=== PATIENT | male | born 1980 | race Caucasian/White ===

== ENCOUNTER 2016-12-16 09:56 | Emergency (ER) | payer MEDICAID ==
[2016-12-16 10:07] VITALS: RESP 16
[2016-12-16] MEDS ORDERED: ONDANSETRON 4 MG/2 ML VIAL IVP ONE ×2 (10:07→11:31)
[2016-12-16] MEDS ORDERED: NS 1,000 ML IV ONE ×2 (10:07→11:12)
[2016-12-16 10:28] LABS: % IMMATURE GRANULYOCYTES 0.3 % (0.0-1.1); ABSOLUTE IMMATURE GRANULOCYTES 0.03 10^3/uL (0.00-0.10); ADD DIFF? NO; ADD MORPH? NO; ADD SCAN? NO; ATYPICAL LYMPHOCYTE FLAG 0 (0-99); FRAGMENT RBC FLAG 0 (0-99); HEMATOCRIT 47.7 % (40.0-51.0); HEMOGLOBIN 16.9 g/dL (13.7-17.5); LEFT SHIFT FLG 0 (0-99); LIPEMIA HEMOLYSIS FLAG 90 (0-99); MEAN CELL HEMOGLOBIN 33.1 pg (27.9-34.1); MEAN CELL HEMOGLOBIN CONCENTR. 35.4 g/dL (32.4-36.7); MEAN CELL VOLUME 93.3 fL (81.5-99.8); MEAN PLATELET VOLUME 9.6 fL (8.7-11.7); PLATELET CLUMPS FLAG 0 (0-99); PLATELET COUNT 219 10^3/uL (150-400); RED BLOOD CELL COUNT 5.11 10^6/uL (4.40-6.38); RED CELL DISTRIBUTION WIDTH 12.2 % (11.5-15.2)
[2016-12-16 10:43] LABS: ALANINE AMINOTRANSFERASE 40 IU/L (21-72); ALBUMIN 4.3 g/dL (3.5-5.0); ALKALINE PHOSPHATASE 69 IU/L (38-126); ANION GAP 16 mEq/L (8-16); ASPARTATE AMINOTRANSFERASE 29 IU/L (17-59); BILIRUBIN,TOTAL 1.2 mg/dL (0.1-1.4); CALCIUM 9.4 mg/dL (8.5-10.4); CARBON DIOXIDE 22 mEq/l (22-31); CHLORIDE 106 mEq/L (97-110); CREATININE 0.9 mg/dL (0.7-1.3); GLOMERULAR FILTRATION RATE > 60; GLUCOSE 125 mg/dL (70-100); POTASSIUM 4.6 mEq/L (3.5-5.2); SODIUM 144 mEq/L (134-144); TOTAL PROTEIN 7.3 g/dL (6.3-8.2)
[2016-12-16] MEDS ORDERED: FAMOTIDINE 20 MG/2 ML SDV IVP ONE (11:12)
[2016-12-16] MEDS ORDERED: KETOROLAC 30 MG/1 ML SDV IVP ONE (11:13)
[2016-12-16 12:45] VITALS: TEMP 97.9
--- NOTE | 2016-12-16 12:49 | UCPHY ---
H & P Time Seen by Provider: 12/16/16 10:11 Patient Type: Established HPI/ROS: 36-year-old male presents complaining of vomiting and epigastric pain that began at 3:00 a.m. this morning. No diarrhea no constipation no fevers no chills States he is prone distress gastritis and this has happened many times in the past. He admits he had 2 large beers yesterday, however denies daily use of alcohol or medical problems related to alcohol States he smokes weed on Sundays. Review of systems As per HPI General no fever no chills no weakness HEENT no eye pain no eye discharge. No eye redness, no sore throat Respiratory no cough, no shortness of breath Cardiac no chest pain, no peripheral edema GI positive abdominal pain-epigastric positive nausea positive vomiting no diarrhea no constipation no flank pain, no hematuria, no dysuria Musculoskeletal no myalgias, no joint pain Heme no easy bruising, no easy bleeding Endo no polyuria, no polydipsia Skin no rashes, no pruritus Neuro no syncope, no dizziness, no headaches Psych is no suicidal ideation, no homicidal ideation Past Medical/Surgical History: Stress gastritis Social History: Alcohol on weekends, weed on weekends Smoking Status: Current every day smoker Physical Exam: 36-year-old male alert and oriented moderate distress secondary to nausea and vomiting, appears nontoxic and afebrile HEENT atraumatic normocephalic, extraocular muscles intact, anicteric Oropharynx negative for erythema negative exudate, tolerating her own secretions Neck supple no meningismus Lungs clear to auscultation bilaterally Heart regular rate and rhythm without murmur rub or gallop Abdomen nondistended normoactive bowel sounds soft epigastric tenderness to palpation negative guarding negative rebound no pulsatile mass Back no CVA tenderness, no step-offs, no spinal tenderness Extremities no cyanosis clubbing or edema Neuro alert and oriented, no focal deficits Constitutional: Initial Vital Signs Temperature (C) 36.5 C 12/16/16 10:05 Heart Rate 56 L 12/16/16 10:05 Respiratory Rate 16 12/16/16 10:05 Blood Pressure 139/88 H 12/16/16 10:05 O2 Sat (%) 98 12/16/16 10:05 O2 Delivery Mode Room Air Allergies/Adverse Reactions: No Known Allergies Allergy (Verified 12/16/16 10:05) Home Medications: Medication Instructions Recorded Ondansetron Odt [Zofran Odt 4 mg 4 mg PO Q4 PRN #10 tab 12/16/16 (*)] Medical Decision Making ED Course/Re-evaluation: Patient seen and evaluated for epigastric pain and vomiting IV established lab sent Patient given IV fluids, Zofran, morphine, famotidine, Toradol Labs all within normal limits CBC without elevated white blood cell count LFTs normal Lipase normal Differential diagnosis considered Pancreatitis, cholecystitis, biliary colic, gastroenteritis, gastritis, peptic ulcer disease Cannot rule out alcoholic gastritis, cannot rule out cyclic vomiting Impression Gastritis Plan Discharge home Zofran Follow-up primary care physician - Data Points Laboratory Results: Laboratory Results 12/16/16 10:24 12/16/16 10:24 Medications Given: Discontinued Medications Famotidine (Pepcid) 20 mg IVP EDNOW ONE Stop: 12/16/16 11:13 Last Admin: 12/16/16 11:28 Dose: 20 mg Sodium Chloride (Ns) 1,000 mls @ 0 mls/hr IV EDNOW ONE PRN Reason: As Directed Stop: 12/16/16 10:08 Last Admin: 12/16/16 10:22 Dose: 1,000 mls Sodium Chloride (Ns) 1,000 mls @ 0 mls/hr IV ONCE ONE PRN Reason: Wide Open Stop: 12/16/16 11:13 Last Admin: 12/16/16 11:25 Dose: 1,000 mls Ketorolac Tromethamine (Toradol) 30 mg IVP EDNOW ONE Stop: 12/16/16 11:14 Last Admin: 12/16/16 11:28 Dose: 30 mg Morphine Sulfate (Morphine) 4 mg IVP EDNOW ONE Stop: 12/16/16 10:37 Last Admin: 12/16/16 10:44 Dose: 4 mg Ondansetron HCl (Zofran) 4 mg IVP EDNOW ONE Stop: 12/16/16 10:08 Last Admin: 12/16/16 10:22 Dose: 4 mg Ondansetron HCl (Zofran) 4 mg IVP EDNOW ONE Stop: 12/16/16 11:32 Last Admin: 12/16/16 11:39 Dose: 4 mg Departure - Departure Disposition: Home, Routine, Self-Care Clinical Impression: Acute gastritis Condition: Good Instructions: Gastritis (ED) Referrals: NONE *PRIMARY CARE P,. [Primary Care Provider] - As per Instructions Prescriptions: Ondansetron Odt [Zofran Odt 4 mg (*)] 4 mg PO Q4 PRN #10 tab PRN Reason: Nausea/Vomiting, Use 1st - PQRS PQRS Measurement: na
[2016-12-16 13:01] VITALS: BP 130/7; PULSE 55; O2SAT 97
== END 2016-12-16 12:59 | disposition home or self-care (01) ==
LOC: CED 09:56
DX: K29.70 Gastritis, unspecified, without bleeding (principal)
CPT/HCPCS: 80053-PO; 83690-PO; 85025-PO; 96361-PO; 96374-PO; 96375-PO; 96376-PO; 99215-PO; G0463-PO; J1885; J2405

== ENCOUNTER 2017-03-07 14:34 | Emergency (ER) | payer MEDICAID ==
[2017-03-07 14:43] VITALS: TEMP 98.1
[2017-03-07] MEDS ORDERED: ONDANSETRON 4 MG/2 ML VIAL IVP ONE (14:46)
[2017-03-07] MEDS ORDERED: NS 1,000 ML IV ONE ×2 (14:59→15:20)
[2017-03-07 15:09] LABS: % IMMATURE GRANULYOCYTES 0.3 % (0.0-1.1); ABSOLUTE IMMATURE GRANULOCYTES 0.04 10^3/uL (0.00-0.10); ADD DIFF? NO; ADD MORPH? NO; ADD SCAN? NO; ATYPICAL LYMPHOCYTE FLAG 0 (0-99); FRAGMENT RBC FLAG 0 (0-99); HEMATOCRIT 50.5 % (40.0-51.0); HEMOGLOBIN 18.3 g/dL (13.7-17.5); LEFT SHIFT FLG 0 (0-99); LIPEMIA HEMOLYSIS FLAG 90 (0-99); MEAN CELL HEMOGLOBIN 33.5 pg (27.9-34.1); MEAN CELL HEMOGLOBIN CONCENTR. 36.2 g/dL (32.4-36.7); MEAN CELL VOLUME 92.3 fL (81.5-99.8); MEAN PLATELET VOLUME 9.7 fL (8.7-11.7); PLATELET CLUMPS FLAG 0 (0-99); PLATELET COUNT 259 10^3/uL (150-400); RED BLOOD CELL COUNT 5.47 10^6/uL (4.40-6.38); RED CELL DISTRIBUTION WIDTH 13.2 % (11.5-15.2)
[2017-03-07] MEDS ORDERED: HALOPERIDOL LACT 5 MG/ML INJ IVP ONE ×2 (15:12→16:47)
[2017-03-07 15:19] LABS: ALANINE AMINOTRANSFERASE 32 IU/L (21-72); ALBUMIN 4.7 g/dL (3.5-5.0); ALKALINE PHOSPHATASE 80 IU/L (38-126); ANION GAP 21 mEq/L (8-16); ASPARTATE AMINOTRANSFERASE 24 IU/L (17-59); BILIRUBIN,TOTAL 1.3 mg/dL (0.1-1.4); BILIRUBIN-CONJUGATED 0.5 mg/dL (0.0-0.5); BILIRUBIN-UNCONJUGATED 0.8 mg/dL (0.0-1.1); CALCIUM 9.8 mg/dL (8.5-10.4); CARBON DIOXIDE 18 mEq/l (22-31); CHLORIDE 104 mEq/L (97-110); GLOMERULAR FILTRATION RATE > 60; GLUCOSE 118 mg/dL (70-100); POTASSIUM 4.2 mEq/L (3.5-5.2); SODIUM 143 mEq/L (134-144)
--- NOTE | 2017-03-07 15:54 | EDPHY ---
H & P Stated Complaint: vomiting since 2 am, epigastric pain Time Seen by Provider: 03/07/17 14:58 HPI/ROS: CHIEF COMPLAINT: Vomiting and abdominal pain History by patient HISTORY OF PRESENT ILLNESS: 36-year-old man with no significant past medical history presents complaining of acute onset of nausea, vomiting and epigastric pain which began began last night around 2:00 a.m. waking him from sleep. He describes epigastric pain is like a hot knife for shards of glass in his upper abdomen. He had normal mood bowel movement around that time with no melena or hematochezia. Symptoms have persisted since and he has been unable to keep down even water. He states that last night before symptoms started he had eaten some old food from his refrigerator. He denies any fever chills. Feels slightly better when he gets in a hot shower and he has done this twice since the onset of the symptoms. He denies any urinary symptoms. This is somewhat similar to prior events he has had he has been told he has stress gastritis. He did drink 2 beers last night. He is also regular marijuana user. He has had no prior abdominal surgeries. REVIEW OF SYSTEMS: As in HPI, and all other systems reviewed and are negative Source: Patient - Personal History Tetanus Vaccine Date: within 10 years - Medical/Surgical History Hx Asthma: No Hx Chronic Respiratory Disease: No Hx Diabetes: No Hx Cardiac Disease: No Hx Renal Disease: No Hx Cirrhosis: No Hx Alcoholism: No Hx HIV/AIDS: No Hx Splenectomy or Spleen Trauma: No Other PMH: stress induced gastritis, - Family History Significant Family History: No pertinent family hx - Social History Smoking Status: Current every day smoker - Physical Exam Exam: General Appearance: Alert, slightly uncomfortable appearing. Eyes: Pupils equal and round no pallor or injection. ENT, Mouth: Mucous membranes moist. Respiratory: Normal, effort, There are no retractions, lungs are clear to auscultation. Cardiovascular: Regular rate and rhythm. Gastrointestinal: Abdomen is soft and nontender, no masses, bowel sounds normal. Neurological: Awake, alert and oriented x 3, no pronator drift, normal gait, no pronator drift Skin: Warm and dry, no rashes. Musculoskeletal: Neck is supple nontender. Extremities are symmetrical, full range of motion. Psychiatric: Patient has normal affect, there is no agitation. Constitutional: Initial Vital Signs Temperature (C) 36.7 C 03/07/17 14:41 Heart Rate 75 03/07/17 14:41 Respiratory Rate 20 03/07/17 14:41 Blood Pressure 151/93 H 03/07/17 14:41 O2 Sat (%) 97 03/07/17 14:41 O2 Delivery Mode Room Air Allergies/Adverse Reactions: No Known Allergies Allergy (Verified 12/16/16 10:05) Medical Decision Making ED Course/Re-evaluation: 36-year-old man with history of prior stress-induced gastritis presents with similar symptoms to prior episodes. Review of old records reveals multiple ER visits for the same types of complaints. Patient states that any kind of trigger that makes him vomit put into this state. Labs her up for slightly elevated white blood cell count but no evidence of anemia and his electrolytes, liver enzymes and lipase are all within normal limits. Patient was given IV fluids and Zofran with minimal relief. He was then given a dose of IV Haldol after which he was much improved. However he did wake up complaining of the burning epigastric pain again. He was given 2nd dose of IV Haldol and Pepcid after which his symptoms resolved. There is no evidence of acute surgical abdomen or close serious systemic toxicity. Given that the patient is a regular marijuana user and his symptoms improved in the hot shower and had been recurrent we discussed the possibility that this might be hyperemesis cannabis syndrome. I am recommending stopping marijuana use for 6-8 weeks. He will also do a trial of oral proton pump inhibitor. Patient was discharged home in improved condition. - Data Points Laboratory Results: Laboratory Results 03/07/17 14:45 03/07/17 14:45 03/07/17 03/07/17 14:45 14:45 WBC 12.78 10^3/uL H 10^3/uL (3.80-9.50) RBC 5.47 10^6/uL 10^6/uL (4.40-6.38) Hgb 18.3 g/dL H g/dL (13.7-17.5) Hct 50.5 % % (40.0-51.0) MCV 92.3 fL fL (81.5-99.8) MCH 33.5 pg pg (27.9-34.1) MCHC 36.2 g/dL g/dL (32.4-36.7) RDW 13.2 % % (11.5-15.2) Plt Count 259 10^3/uL 10^3/uL (150-400) MPV 9.7 fL fL (8.7-11.7) Neut % (Auto) 84.9 % H % (39.3-74.2) Lymph % (Auto) 9.1 % L % (15.0-45.0) [place] % (Auto) 5.4 % % (4.5-13.0) Eos % (Auto) 0.0 % L % (0.6-7.6) Baso % (Auto) 0.3 % % (0.3-1.7) Nucleat RBC Rel Count 0.0 % % (0.0-0.2) Absolute Neuts (auto) 10.85 10^3/uL H 10^3/uL (1.70-6.50) Absolute Lymphs (auto) 1.16 10^3/uL 10^3/uL (1.00-3.00) Absolute Monos (auto) 0.69 10^3/uL 10^3/uL (0.30-0.80) Absolute Eos (auto) 0.00 10^3/uL L 10^3/uL (0.03-0.40) Absolute Basos (auto) 0.04 10^3/uL 10^3/uL (0.02-0.10) Absolute Nucleated RBC 0.00 10^3/uL 10^3/uL (0-0.01) Immature Gran % 0.3 % % (0.0-1.1) Immature Gran # 0.04 10^3/uL 10^3/uL (0.00-0.10) Sodium 143 mEq/L mEq/L (134-144) Potassium 4.2 mEq/L mEq/L (3.5-5.2) Chloride 104 mEq/L mEq/L (97-110) Carbon Dioxide 18 mEq/l L mEq/l (22-31) Anion Gap 21 mEq/L H mEq/L (8-16) BUN 9 mg/dL mg/dL (7-23) Creatinine 1.0 mg/dL mg/dL (0.7-1.3) Estimated GFR > 60 Glucose 118 mg/dL H mg/dL (70-100) Calcium 9.8 mg/dL mg/dL (8.5-10.4) Total Bilirubin 1.3 mg/dL mg/dL (0.1-1.4) Conjugated Bilirubin 0.5 mg/dL mg/dL (0.0-0.5) Unconjugated Bilirubin 0.8 mg/dL mg/dL (0.0-1.1) AST 24 IU/L IU/L (17-59) ALT 32 IU/L IU/L (21-72) Alkaline Phosphatase 80 IU/L IU/L (38-126) Total Protein 8.0 g/dL g/dL (6.3-8.2) Albumin 4.7 g/dL g/dL (3.5-5.0) Lipase 74.0 IU/L IU/L (23-300) Medications Given: Discontinued Medications Haloperidol Lactate (Haldol Injection) 2.5 mg IVP EDNOW ONE Stop: 03/07/17 15:13 Last Admin: 03/07/17 15:25 Dose: 2.5 mg Haloperidol Lactate (Haldol Injection) 2.5 mg IVP EDNOW ONE Stop: 03/07/17 16:48 Last Admin: 03/07/17 16:55 Dose: 2.5 mg Sodium Chloride (Ns) 1,000 mls @ 0 mls/hr IV ONCE ONE; Wide Open PRN Reason: Protocol Stop: 03/07/17 15:00 Last Admin: 03/07/17 15:05 Dose: 1,000 mls Sodium Chloride (Ns) 1,000 mls @ 0 mls/hr IV ONCE ONE PRN Reason: Wide Open Stop: 03/07/17 15:21 Last Admin: 03/07/17 15:20 Dose: 1,000 mls Famotidine 40 mg/ Sodium (Chloride) 104 mls @ 408 mls/hr IV EDNOW ONE Stop: 03/07/17 17:02 Last Admin: 03/07/17 17:00 Dose: 104 mls Ondansetron HCl (Zofran) 4 mg IVP EDNOW ONE Stop: 03/07/17 14:47 Last Admin: 03/07/17 14:50 Dose: 4 mg Departure - Departure Disposition: Home, Routine, Self-Care Clinical Impression: Cannabinoid hyperemesis syndrome Condition: Good Instructions: Acute Nausea and Vomiting (ED) Additional Instructions: You were seen by Dr. Inez Alcantar today. Stop using marijuana for at least 6 or 8 weeks. Try omeprezole (Prilosec) for the next 5 days. Establish primary care so you have a care provider to follow up with since this has been a recurring problem for you. Return for any worsening or new concerns. Referrals: NONE *PRIMARY CARE P,. [Primary Care Provider] - As per Instructions
[2017-03-07] MEDS ORDERED: FAMOTIDINE 40 MG in NS 100 ML IV ONE (16:47)
[2017-03-07 17:43] VITALS: BP 143/87; PULSE 92; RESP 14; O2SAT 92
== END 2017-03-07 17:43 | disposition home or self-care (01) ==
LOC: CED 14:34
DX: F12.10 Cannabis abuse, uncomplicated (principal); R11.10 Vomiting, unspecified; F17.200 Nicotine dependence, unspecified, uncomplicated
CPT/HCPCS: 80048-PO; 80076-PO; 83690-PO; 85025-PO; 96374; J2405

== ENCOUNTER 2017-08-08 06:49 | Emergency (ER) | payer MEDICAID ==
--- NOTE | 2017-08-08 07:11 | EDPHY ---
H & P Time Seen by Provider: 08/08/17 07:01 HPI/ROS: CHIEF COMPLAINT: nausea, vomiting, epigastric pain HISTORY OF PRESENT ILLNESS: this is a 37-year-old male with at least 3 prior episodes of a similar story. He states that in the past he has been evaluated for hyperemesis syndrome in the setting of marijuana use This time is essentially similar as far as he can recall. He felt well for the entire day yesterday. Ate chicken wings from [employer] at 7:00 p.m. without any untoward problems. However by 7:30 p.m. he started having a burning sensation of a moderate to severe nature in the epigastrium and hypogastrium. There is no left flank component until later when he feels that he has been vomiting so frequently, approximately 10 times, that he strained his left back. By large she has a no history of back problems. Pain itself is localized, does not radiate, is intense, and steady. It is not pulsating. There is no radiation to the shoulder blades nor to the back. There is no lower abdominal pain whatsoever. He states he can walk upright. S the emesis there was some brief relief yesterday evening at around 6:39 eight thirty nine p.m. for about 4 hours when he had taken a Zofran. He had no other medications to use thereafter. Since 1:00 a.m. he has essentially been vomiting every hour. There has been no diarrhea. Travel: None Others: None Antibiotics: None Bad Food: None Bad Water: None Recent Surgery: None REVIEW OF SYSTEMS: Constitutional: No fever, no chills. Eyes: No discharge ENT: No sore throat. Though states, he has a dry mouth. Cardiovascular: No chest pain, no palpitations. Respiratory: No cough, shortness of breath, or wheezing. Gastrointestinal: No nausea vomiting or diarrhea. No abdominal pain. Genitourinary: No hematuria or frequency. Musculoskeletal: No back pain. Skin: No rashes. Neurological: No headache. 10 point ROS otherwise negative Source: Patient Exam Limitations: No limitations - Personal History Tetanus Vaccine Date: within 10 years - Medical/Surgical History Hx Asthma: No Hx Chronic Respiratory Disease: No Hx Diabetes: No Hx Cardiac Disease: No Hx Renal Disease: No Hx Cirrhosis: No Hx Alcoholism: No Hx HIV/AIDS: No Hx Splenectomy or Spleen Trauma: No Other PMH: stress induced gastritis, perhaps cyclic vomiting secondary to her prior marijuana use - Family History Significant Family History: No pertinent family hx - Social History Smoking Status: Current every day smoker Alcohol Use: None Drug Use: Marijuana (He notes, as of 6 months ago, he no longer uses marijuana due to the particular work that he does) - Physical Exam Exam: General Appearance: Alert, no distress. Afebrile. Normal phonation. No respiratory distress. Eyes: Pupils equal and round no pallor or injection. No icterus ENT, Mouth: Mucous membranes dry. Pharynx without erythema or exudate. TM Clear. Neck: No adenopathy. Supple. No JVD. Trachea in midline. Respiratory: There are no retractions, lungs are clear to auscultation. Chest wall: Nontender to palpation. No crepitus. Cardiovascular: Regular rate and rhythm. Abdomen: Upper abdominal tenderness in the midline without rebound or guarding. Makes him wince. Percussion sensitivity in that location. However in the lower abdominal area there is no tenderness per se. Does transmit a pressure sensation in the upper abdomen however when i do palpate the lower abd.. There is no distention. Bowel sounds are present. Neurological: Ox3. No motor weakness. Sensation intact. Gait nl. Skin: Warm and dry, no rashes. Musculoskeletal: No joint swelling. Extremities: No edema. Homans sign negative. No cords. Psychiatric: Normal affect. Patient is oriented X 3. There is no agitation Constitutional: Initial Vital Signs Temperature (C) 36.5 C 08/08/17 07:01 Heart Rate 77 08/08/17 07:01 Respiratory Rate 24 H 08/08/17 07:01 Blood Pressure 157/83 H 08/08/17 07:01 O2 Sat (%) 96 08/08/17 07:01 O2 Delivery Mode Room Air Allergies/Adverse Reactions: No Known Allergies Allergy (Verified 08/08/17 07:04) Home Medications: Medication Instructions Recorded LORazepam [Ativan] 1 mg PO TID PRN #6 tablet 08/08/17 Omeprazole [Prilosec 20 mg] 20 mg PO DAILY #7 capsule. 08/08/17 Ondansetron HCl [Zofran] 8 mg PO TID #6 tablet 08/08/17 Medical Decision Making ED Course/Re-evaluation: Started on aggressive hydration therapy in view of his clinical findings of volume depletion. 2 L total saline was infused. Initial medications included: Zofran 8 mg IV, Toradol 30 mg IV, Protonix 40 mg IV. However, this did not really manage his pain all that well. Thus he was titrated with low-dose morphine for discomfort. Re-evaluated at 8:05 a.m. Less tenderness in the hypogastrium. Has yet to be able to give us urine. CBC is normal LFTs normal Lipase normal No evidence of lower abdominal tenderness on clinical exam, when we checked at discharge, no clinical findings of appendicitis or diverticulitis. Patient nonetheless warned. Over time he was markedly improved to a pain level only 3 down from 7. He felt at least 75% better. Weight that time discussed his convalescence over the next 2-3 days with home therapy of both Ativan and Zofran for symptomatic management and progressive hydration with return if any worsening symptoms or lower abdominal pain. Differential Diagnosis: Differential diagnosis includes, but is not limited to: Gastroenteritis, dehydration, diverticulitis, hepatitis, pancreatitis, renal colic, kidney stones, ureterolithiasis, cholecystitis, appendicitis, gastritis, mesenteric adenitis, food poisoning, bacterial dysentery. - Data Points Laboratory Results: Laboratory Results 08/08/17 07:30 08/08/17 08/08/17 08/08/17 10:55 07:30 07:30 WBC 7.75 10^3/uL 10^3/uL (3.80-9.50) RBC 5.21 10^6/uL 10^6/uL (4.40-6.38) Hgb 18.1 g/dL H g/dL (13.7-17.5) Hct 48.4 % % (40.0-51.0) MCV 92.9 fL fL (81.5-99.8) MCH 34.7 pg H pg (27.9-34.1) MCHC 37.4 g/dL H g/dL (32.4-36.7) RDW 11.9 % % (11.5-15.2) Plt Count 185 10^3/uL 10^3/uL (150-400) MPV 9.7 fL fL (8.7-11.7) Neut % (Auto) 84.2 % H % (39.3-74.2) Lymph % (Auto) 11.6 % L % (15.0-45.0) [place] % (Auto) 3.6 % L % (4.5-13.0) Eos % (Auto) 0.0 % L % (0.6-7.6) Baso % (Auto) 0.3 % % (0.3-1.7) Nucleat RBC Rel Count 0.0 % % (0.0-0.2) Absolute Neuts (auto) 6.53 10^3/uL H 10^3/uL (1.70-6.50) Absolute Lymphs (auto) 0.90 10^3/uL L 10^3/uL (1.00-3.00) Absolute Monos (auto) 0.28 10^3/uL L 10^3/uL (0.30-0.80) Absolute Eos (auto) 0.00 10^3/uL L 10^3/uL (0.03-0.40) Absolute Basos (auto) 0.02 10^3/uL 10^3/uL (0.02-0.10) Absolute Nucleated RBC 0.00 10^3/uL 10^3/uL (0-0.01) Immature Gran % 0.3 % % (0.0-1.1) Immature Gran # 0.02 10^3/uL 10^3/uL (0.00-0.10) Total Bilirubin 2.0 mg/dL H mg/dL (0.1-1.4) Conjugated Bilirubin 0.5 mg/dL mg/dL (0.0-0.5) Unconjugated Bilirubin 1.5 mg/dL H mg/dL (0.0-1.1) AST 27 IU/L IU/L (17-59) ALT 52 IU/L IU/L (21-72) Alkaline Phosphatase 67 IU/L IU/L (38-126) Total Protein 7.5 g/dL g/dL (6.3-8.2) Albumin 4.5 g/dL g/dL (3.5-5.0) Lipase 56 IU/L IU/L (23-300) Urine Color YELLOW Urine Appearance CLEAR Urine pH 6.0 (5.0-7.5) Ur Specific [place] 1.025 (1.002-1.030) Urine Protein 1+ H (NEGATIVE) Urine Ketones 3+ H (NEGATIVE) Urine Blood NEGATIVE (NEGATIVE) Urine Nitrate NEGATIVE (NEGATIVE) Urine Bilirubin NEGATIVE (NEGATIVE) Urine Urobilinogen 0.2 EU EU (0.2-1.0) Ur Leukocyte Esterase NEGATIVE (NEGATIVE) Urine RBC 0-1 /hpf /hpf (0-3) Urine WBC 0-1 /hpf /hpf (0-3) Ur Epithelial Cells TRACE /lpf /lpf (NONE-1+) Urine Bacteria TRACE /hpf H /hpf (NONE SEEN) Urine Mucus TRACE /lpf /lpf (NONE-1+) Urine Glucose NEGATIVE (NEGATIVE) Medications Given: Discontinued Medications Fentanyl (Sublimaze) 50 mcg IVP EDNOW ONE Stop: 08/08/17 07:14 Last Admin: 08/08/17 07:33 Dose: 50 mcg Sodium Chloride (Ns) 1,000 mls @ 0 mls/hr IV EDNOW ONE; Wide Open PRN Reason: Protocol Stop: 08/08/17 07:14 Last Admin: 08/08/17 07:26 Dose: 1,000 mls Sodium Chloride (Ns) 1,000 mls @ 0 mls/hr IV EDNOW ONE; As Directed PRN Reason: Protocol Stop: 08/08/17 08:00 Last Admin: 08/08/17 08:48 Dose: 1,000 mls Ketorolac Tromethamine (Toradol) 30 mg IVP EDNOW ONE Stop: 08/08/17 07:14 Last Admin: 08/08/17 07:30 Dose: 30 mg Morphine Sulfate (Morphine) 4 mg IVP EDNOW ONE Stop: 08/08/17 08:53 Last Admin: 08/08/17 09:33 Dose: 4 mg Ondansetron HCl (Zofran) 8 mg IVP EDNOW ONE Stop: 08/08/17 07:14 Last Admin: 08/08/17 07:28 Dose: 8 mg Pantoprazole Sodium (Protonix) 40 mg IVP EDNOW ONE Stop: 08/08/17 07:15 Last Admin: 08/08/17 07:37 Dose: 40 mg Departure - Departure Disposition: Home, Routine, Self-Care Clinical Impression: Dehydration, Gastroenteritis, Cannabinoid hyperemesis syndrome Condition: Good Instructions: Dehydration (ED), Gastroenteritis (ED), Acute Nausea and Vomiting (ED) Additional Instructions: Yes, even though your have not had any marijuana for a year it still may be related to prior cannabis use. However these events should happen less than less as you stay away from cannabis. Zofran for the nausea Ativan for the nausea OTC Prilosec (or Rx) for one week Recheck tomorrow if still ill, sooner if you start getting worse Referrals: NONE *PRIMARY CARE P,. [Primary Care Provider] - As per Instructions Stand Alone Forms: Work Excuse Prescriptions: LORazepam [Ativan] 1 mg PO TID PRN #6 tablet PRN Reason: Nausea or abdominal pain Omeprazole [Prilosec 20 mg] 20 mg PO DAILY #7 capsule. Ondansetron HCl [Zofran] 8 mg PO TID #6 tablet
[2017-08-08] MEDS ORDERED: ONDANSETRON 4 MG/2 ML VIAL IVP ONE (07:13)
[2017-08-08] MEDS ORDERED: KETOROLAC 30 MG/1 ML SDV IVP ONE (07:13)
[2017-08-08] MEDS ORDERED: fentaNYL 100 MCG/2 ML INJ IVP ONE (07:13)
[2017-08-08] MEDS ORDERED: NS 1,000 ML IV ONE ×2 (07:13→07:59)
[2017-08-08] MEDS ORDERED: PANTOPRAZOLE SODIUM 40 MG VIAL IVP ONE (07:14)
[2017-08-08 07:38] LABS: ADD DIFF? NO; ADD MORPH? NO; ADD SCAN? NO; FRAGMENT RBC FLAG 0 (0-99); LEFT SHIFT FLG 0 (0-99); MEAN PLATELET VOLUME 9.7 fL (8.7-11.7); PLATELET CLUMPS FLAG 0 (0-99); RED CELL DISTRIBUTION WIDTH 11.9 % (11.5-15.2)
[2017-08-08 07:42] LABS: % IMMATURE GRANULYOCYTES 0.3 % (0.0-1.1); ABSOLUTE IMMATURE GRANULOCYTES 0.02 10^3/uL (0.00-0.10); ATYPICAL LYMPHOCYTE FLAG 20 (0-99); HEMATOCRIT 48.4 % (40.0-51.0); HEMOGLOBIN 18.1 g/dL (13.7-17.5); LIPEMIA HEMOLYSIS FLAG 90 (0-99); MEAN CELL HEMOGLOBIN 34.7 pg (27.9-34.1); MEAN CELL HEMOGLOBIN CONCENTR. 37.4 g/dL (32.4-36.7); MEAN CELL VOLUME 92.9 fL (81.5-99.8); PLATELET COUNT 185 10^3/uL (150-400); RED BLOOD CELL COUNT 5.21 10^6/uL (4.40-6.38)
[2017-08-08 07:52] LABS: ALBUMIN 4.5 g/dL (3.5-5.0); BILIRUBIN-CONJUGATED 0.5 mg/dL (0.0-0.5); BILIRUBIN-UNCONJUGATED 1.5 mg/dL (0.0-1.1); TOTAL PROTEIN 7.5 g/dL (6.3-8.2)
[2017-08-08 10:57] VITALS: RESP 16
[2017-08-08 11:04] LABS: COLOR YELLOW; LEUKOCYTE ESTERASE,URINE NEGATIVE (NEGATIVE); NITRITE,URINE NEGATIVE (NEGATIVE)
[2017-08-08 11:15] LABS: BACTERIA TRACE /hpf (NONE SEEN); MUCUS TRACE /lpf (NONE-1+); RBC,URINE 0-1 /hpf (0-3); WBC,URINE 0-1 /hpf (0-3)
[2017-08-08 12:18] VITALS: BP 119/68; PULSE 76; TEMP 98.4; O2SAT 94
== END 2017-08-08 12:05 | disposition home or self-care (01) ==
LOC: CED 06:49
DX: K52.9 Noninfective gastroenteritis and colitis, unspecified (principal); R11.10 Vomiting, unspecified; F12.10 Cannabis abuse, uncomplicated; E86.0 Dehydration; F17.200 Nicotine dependence, unspecified, uncomplicated; E86.9 Volume depletion, unspecified
CPT/HCPCS: 80076-PO; 81003-PO; 81015-PO; 83690-PO; 85025-PO; 96374; J1885; J2405; J3010

== ENCOUNTER 2017-09-18 08:26 | Emergency (ER) | payer MEDICAID ==
[2017-09-18] MEDS ORDERED: NS 1,000 ML IV ONE ×2 (08:31→09:19)
[2017-09-18] MEDS ORDERED: HALOPERIDOL LACT 5 MG/ML INJ IVP ONE ×2 (08:31→09:52)
[2017-09-18 08:37] VITALS: RESP 18; TEMP 98.1
[2017-09-18 08:42] LABS: PLATELET COUNT 250 10^3/uL (150-400)
--- NOTE | 2017-09-18 08:50 | EDPHY ---
H & P Time Seen by Provider: 09/18/17 08:28 HPI/ROS: CHIEF COMPLAINT: Abdominal pain, vomiting HISTORY OF PRESENT ILLNESS: 37-year-old male with a history of cyclic vomiting syndrome presents with abdominal pain and vomiting. Onset of intense and severe epigastric pain 8 hr ago, followed by multiple episodes of vomiting. Vomiting temporarily relieved the pain, but then the pain gradually built up again. Associated with a mild headache and diarrhea. No fever. Similar to prior episodes of abdominal pain and vomiting. Prior relief with Haldol IV. No marijuana use in the past 4 months. REVIEW OF SYSTEMS: Constitutional: No fever, no chills Eyes: No visual changes ENT: No sore throat Respiratory: No cough, no shortness of breath Cardiac: No chest pain Genitourinary: no dysuria Musculoskeletal: No leg pain or swelling Skin: No rash Neurological: Generalized weakness Psychiatric: Anxious Past Medical/Surgical History: Cyclic vomiting syndrome Social History: Drinks a couple beers every other day Smoke cigarettes daily Denies drug use Smoking Status: Current every day smoker Physical Exam: General Appearance: Alert, pale, appears in pain Eyes: Pupils equal and round, no conjunctival pallor or injection ENT, Mouth: Mucous membranes dry, court intention Neck: Normal inspection Respiratory: Lungs are clear to auscultation Cardiovascular: Regular rate and rhythm Gastrointestinal: Abdomen is soft, epigastric tenderness Neurological: A&O, nonfocal, normal gait Skin: Warm and dry, no rash Extremities: Normal inspection Psychiatric: Mood and affect normal Constitutional: Initial Vital Signs Temperature (C) 36.7 C 09/18/17 08:36 Heart Rate 65 09/18/17 08:36 Respiratory Rate 18 09/18/17 08:36 Blood Pressure 177/101 H 09/18/17 08:36 O2 Sat (%) 98 09/18/17 08:36 O2 Delivery Mode Room Air Allergies/Adverse Reactions: No Known Allergies Allergy (Verified 09/18/17 08:35) Home Medications: Medication Instructions Recorded Ondansetron Odt [Zofran Odt 4 mg 4 mg PO Q4 PRN #6 tab 09/18/17 (*)] Medical Decision Making ED Course/Re-evaluation: Past medical record reviewed. He has been seen in this emergency department a few times for similar symptoms and has had prior relief with Haldol IV. Clinical scenario consistent with cyclic vomiting syndrome. Doubt alternative etiology today. IV normal saline 1 L and Haldol 2.5 mg IV given. 9:45 a.m.-feels better, nausea has almost completely resolved. Continues to have epigastric pain. Abdominal exam is unchanged. Haldol 2.5 mg IV and Protonix 40 mg IV given. Feels much better on discharge and wants to go home. During this emergency department visit, he repeatedly asked for IV narcotics; this request was declined. However, after a total of Haldol 5 mg IV, Zofran 4 mg IV and Protonix 40 mg IV, he felt much better and did not want further medication. No vomiting while he was in the ED. Able to tolerate oral fluids. Abdominal exam remained benign on discharge. Return precautions given. Differential Diagnosis: Differential diagnosis includes though it is not limited to appendicitis, cholecystitis, diverticulitis, pyelonephritis, bowel perforation, small bowel obstruction. - Data Points Laboratory Results: Laboratory Results 09/18/17 08:38 09/18/17 08:38 09/18/17 09/18/17 08:38 08:38 WBC 11.63 10^3/uL H 10^3/uL (3.80-9.50) RBC 5.39 10^6/uL 10^6/uL (4.40-6.38) Hgb 18.8 g/dL H g/dL (13.7-17.5) Hct 50.4 % % (40.0-51.0) MCV 93.5 fL fL (81.5-99.8) MCH 34.9 pg H pg (27.9-34.1) MCHC 37.3 g/dL H g/dL (32.4-36.7) RDW 12.7 % % (11.5-15.2) Plt Count 250 10^3/uL 10^3/uL (150-400) MPV 9.5 fL fL (8.7-11.7) Neut % (Auto) 77.3 % H % (39.3-74.2) Lymph % (Auto) 13.5 % L % (15.0-45.0) [place] % (Auto) 7.1 % % (4.5-13.0) Eos % (Auto) 0.8 % % (0.6-7.6) Baso % (Auto) 0.9 % % (0.3-1.7) Nucleat RBC Rel Count 0.0 % % (0.0-0.2) Absolute Neuts (auto) 9.00 10^3/uL H 10^3/uL (1.70-6.50) Absolute Lymphs (auto) 1.57 10^3/uL 10^3/uL (1.00-3.00) Absolute Monos (auto) 0.82 10^3/uL H 10^3/uL (0.30-0.80) Absolute Eos (auto) 0.09 10^3/uL 10^3/uL (0.03-0.40) Absolute Basos (auto) 0.10 10^3/uL 10^3/uL (0.02-0.10) Absolute Nucleated RBC 0.00 10^3/uL 10^3/uL (0-0.01) Immature Gran % 0.4 % % (0.0-1.1) Immature Gran # 0.05 10^3/uL 10^3/uL (0.00-0.10) Sodium 143 mEq/L mEq/L (134-144) Potassium 3.9 mEq/L mEq/L (3.5-5.2) Chloride 107 mEq/L mEq/L (97-110) Carbon Dioxide 18 mEq/l L mEq/l (22-31) Anion Gap 18 mEq/L H mEq/L (8-16) BUN 8 mg/dL mg/dL (7-23) Creatinine 1.1 mg/dL mg/dL (0.7-1.3) Estimated GFR > 60 Glucose 141 mg/dL H mg/dL (70-100) Calcium 10.7 mg/dL H mg/dL (8.5-10.4) Phosphorus 1.5 mg/dL L mg/dL (2.5-4.5) Total Bilirubin 1.7 mg/dL H mg/dL (0.1-1.4) Conjugated Bilirubin 0.4 mg/dL mg/dL (0.0-0.5) Unconjugated Bilirubin 1.3 mg/dL H mg/dL (0.0-1.1) AST 32 IU/L IU/L (17-59) ALT 45 IU/L IU/L (21-72) Alkaline Phosphatase 78 IU/L IU/L (38-126) Total Protein 7.6 g/dL g/dL (6.3-8.2) Albumin 4.5 g/dL g/dL (3.5-5.0) Lipase 91 IU/L IU/L (23-300) Medications Given: Discontinued Medications Haloperidol Lactate (Haldol Injection) 2.5 mg IVP EDNOW ONE Stop: 09/18/17 08:32 Last Admin: 09/18/17 08:44 Dose: 2.5 mg Haloperidol Lactate (Haldol Injection) 2.5 mg IVP EDNOW ONE Stop: 09/18/17 09:53 Last Admin: 09/18/17 10:00 Dose: 2.5 mg Sodium Chloride (Ns) 1,000 mls @ 0 mls/hr IV EDNOW ONE; Wide Open PRN Reason: Protocol Stop: 09/18/17 08:32 Last Admin: 09/18/17 08:39 Dose: 1,000 mls Sodium Chloride (Ns) 1,000 mls @ 0 mls/hr IV ONCE ONE; Wide Open PRN Reason: Protocol Stop: 09/18/17 09:20 Last Admin: 09/18/17 09:34 Dose: 1,000 mls Ondansetron HCl (Zofran) 4 mg IVP EDNOW ONE Stop: 09/18/17 09:10 Last Admin: 09/18/17 09:15 Dose: 4 mg Pantoprazole Sodium (Protonix) 40 mg IVP EDNOW ONE Stop: 09/18/17 09:54 Last Admin: 09/18/17 09:58 Dose: 40 mg Departure - Departure Disposition: Home, Routine, Self-Care Clinical Impression: Cyclic vomiting syndrome Qualifiers: Vomiting Intractability: non-intractable Nausea presence: with nausea Qualified Code(s): G43.A0 - Cyclical vomiting, not intractable Condition: Good Instructions: Cyclic Vomiting Syndrome (ED) Additional Instructions: 1. Clear liquids for 24 hours. 2. Advance diet as tolerated. I suggest the BRAT diet to start: bananas, rice, applesauce and toast. 3. Return for worsening symptoms, persistent vomiting, abdominal pain, any concerns. Referrals: Sandy Lucero MD [Medical Doctor] - 1 day, if not improved Prescriptions: Ondansetron Odt [Zofran Odt 4 mg (*)] 4 mg PO Q4 PRN #6 tab PRN Reason: Nausea
[2017-09-18] MEDS ORDERED: ONDANSETRON 4 MG/2 ML VIAL IVP ONE (09:09)
[2017-09-18] MEDS ORDERED: PANTOPRAZOLE SODIUM 40 MG VIAL IVP ONE (09:53)
[2017-09-18 10:02] VITALS: BP 126/72; PULSE 70; O2SAT 96
== END 2017-09-18 10:29 | disposition home or self-care (01) ==
LOC: CED 08:26
DX: G43.A0 Cyclical vomiting, in migraine, not intractable (principal); E86.9 Volume depletion, unspecified; F17.200 Nicotine dependence, unspecified, uncomplicated
CPT/HCPCS: 80048-PO; 80076-PO; 83690-PO; 84100-PO; 85025-PO; 96374; J1630; J2405

== ENCOUNTER 2017-12-22 18:24 | Emergency (ER) | payer MEDICAID ==
[2017-12-22] MEDS ORDERED: NS 1,000 ML IV ONE ×2 (18:35→19:39)
[2017-12-22] MEDS ORDERED: ONDANSETRON 4 MG/2 ML VIAL IVP ONE (18:35)
--- NOTE | 2017-12-22 18:37 | EDPHY ---
H & P Time Seen by Provider: 12/22/17 18:28 HPI/ROS: 37 yo M with hx cyclic vomiting presents with similar symptoms today. He states that began last night at 6:00 p.m. He complains of epigastric abdominal pain and states when he vomits is also irritating a prior back injury for which she is currently in physical therapy. He also states his only medication is ondansetron p.r.n., that he is not currently taking any daily medications. He admits alcohol a few times per week usually a 6 pack and denies ever having any symptoms of withdrawal. He denies marijuana use states the last time he used marijuana was approximately at least 6 months ago. He states he has a primary care physician who is currently working with to sort out where this cyclic vomiting is coming from. Review of systems As per HPI General no fever no chills no weakness HEENT no eye pain no eye discharge. No eye redness, no sore throat Respiratory no cough, no shortness of breath Cardiac no chest pain, no peripheral edema GI positive abdominal pain, no diarrhea, no constipation, no nausea, positive vomiting no flank pain, no hematuria, no dysuria Musculoskeletal positive myalgias, no joint pain Heme no easy bruising, no easy bleeding Endo no polyuria, no polydipsia Skin no rashes, no pruritus Neuro no syncope, no dizziness, no headaches Psych is no suicidal ideation, no homicidal ideation Past Medical/Surgical History: cyclic vomiting Social History: Denies marijuana use Denies other recreational drug use States he drinks alcohol approximately a six-pack 2-3 times per week Smoking Status: Current every day smoker Physical Exam: 37-year-old male alert and oriented, moderate distress secondary to epigastric abdominal pain, afebrile Nontoxic appearance HEENT atraumatic normocephalic, extraocular muscles intact, anicteric Oropharynx negative for erythema negative exudate, tolerating her own secretions Neck supple no meningismus Lungs clear to auscultation bilaterally Heart regular rate and rhythm without murmur rub or gallop Abdomen nondistended bowel sounds quiet, positive epigastric tenderness no guarding no rebound Back no CVA tenderness, no step-offs, no spinal tenderness Extremities no cyanosis clubbing or edema Neuro alert and oriented, no focal deficits Constitutional: Initial Vital Signs Temperature (C) 37.2 C 12/22/17 18:33 Heart Rate 85 12/22/17 18:33 Respiratory Rate 18 12/22/17 18:33 Blood Pressure 166/102 H 12/22/17 18:33 O2 Sat (%) 96 12/22/17 18:33 O2 Delivery Mode Room Air Allergies/Adverse Reactions: No Known Allergies Allergy (Verified 09/18/17 08:35) Home Medications: Medication Instructions Recorded Ondansetron Odt [Zofran Odt 4 mg 4 mg PO Q4 PRN #6 tab 09/18/17 (*)] Medical Decision Making - Diagnostics Imaging Results: Imaging Impressions Abdomen X-Ray 12/22/17 18:57 Impression: 1. Non-obstructive bowel gas pattern. 2. Normal chest. Abdomen Ultrasound 12/22/17 19:38 Impression: Exam is mildly limited due to poor penetration. Trace free fluid along the inferior liver edge, nonspecific. Dr. Gonzalez discussed these findings by telephone with Kristi Valencia MD at 2200 hours on 12/22/2017. ED Course/Re-evaluation: Patient seen and evaluated for epigastric abdominal pain with vomiting. IV established Patient initially given ondansetron 4 mg IV push and normal saline 1 L wide open. Additionally he was given Haldol 2.5 mg IV, and famotidine 20 mg IV push. His nausea markedly improved however he continued to complain of epigastric pain. He was given Toradol 15 mg IV push and ultrasound ordered to evaluate right upper quadrant. Pt feeling markedly better after fluids and medication, requesting discharge. N-cln-[id number] series No evidence of dilated bowel No free air Right upper quadrant ultrasound small amount of free fluid near liver edge, otherwise normal Impression Acute gastritis with vomiting Dehydration Plan Home f/u pcp this week Return if needed Differential Diagnosis: Differential diagnosis considered but not limited to: Cholecystitis, gastritis, gastroenteritis, cyclic vomiting syndrome, pancreatitis, alcohol withdrawal, peptic ulcer disease - Data Points Laboratory Results: Laboratory Results 12/22/17 18:35 12/22/17 18:35 12/22/17 12/22/17 12/22/17 18:48 18:35 18:35 WBC 13.38 10^3/uL H 10^3/uL (3.80-9.50) RBC 5.51 10^6/uL 10^6/uL (4.40-6.38) Hgb 19.4 g/dL H g/dL (13.7-17.5) Hct 52.4 % H % (40.0-51.0) MCV 95.1 fL fL (81.5-99.8) MCH 35.2 pg H pg (27.9-34.1) MCHC 37.0 g/dL H g/dL (32.4-36.7) RDW 13.2 % % (11.5-15.2) Plt Count 257 10^3/uL 10^3/uL (150-400) MPV 9.3 fL fL (8.7-11.7) Neut % (Auto) 87.8 % H % (39.3-74.2) Lymph % (Auto) 6.3 % L % (15.0-45.0) [place] % (Auto) 5.3 % % (4.5-13.0) Eos % (Auto) 0.1 % L % (0.6-7.6) Baso % (Auto) 0.1 % L % (0.3-1.7) Nucleat RBC Rel Count 0.0 % % (0.0-0.2) Absolute Neuts (auto) 11.75 10^3/uL H 10^3/uL (1.70-6.50) Absolute Lymphs (auto) 0.84 10^3/uL L 10^3/uL (1.00-3.00) Absolute Monos (auto) 0.71 10^3/uL 10^3/uL (0.30-0.80) Absolute Eos (auto) 0.01 10^3/uL L 10^3/uL (0.03-0.40) Absolute Basos (auto) 0.02 10^3/uL 10^3/uL (0.02-0.10) Absolute Nucleated RBC 0.00 10^3/uL 10^3/uL (0-0.01) Immature Gran % 0.4 % % (0.0-1.1) Immature Gran # 0.05 10^3/uL 10^3/uL (0.00-0.10) VBG Lactic Acid 1.5 mmol/L mmol/L (0.7-2.1) Sodium 135 mEq/L mEq/L (135-145) Potassium 4.4 mEq/L mEq/L (3.5-5.2) Chloride 103 mEq/L mEq/L (97-110) Carbon Dioxide 18 mEq/l L mEq/l (22-31) Anion Gap 14 mEq/L mEq/L (8-16) BUN 12 mg/dL mg/dL (7-23) Creatinine 1.3 mg/dL mg/dL (0.7-1.3) Estimated GFR > 60 Glucose 152 mg/dL H mg/dL (70-100) Calcium 10.9 mg/dL H mg/dL (8.5-10.4) Phosphorus 2.1 mg/dL L mg/dL (2.5-4.5) Total Bilirubin 2.4 mg/dL H mg/dL (0.1-1.4) Conjugated Bilirubin 0.6 mg/dL H mg/dL (0.0-0.5) Unconjugated Bilirubin 1.8 mg/dL H mg/dL (0.0-1.1) AST 27 IU/L IU/L (17-59) ALT 49 IU/L IU/L (21-72) Alkaline Phosphatase 76 IU/L IU/L (38-126) Total Protein 8.6 g/dL H g/dL (6.3-8.2) Albumin 4.9 g/dL g/dL (3.5-5.0) Lipase 50 IU/L IU/L (23-300) Medications Given: Discontinued Medications Haloperidol Lactate (Haldol Injection) 2.5 mg IVP EDNOW ONE Stop: 12/22/17 18:45 Last Admin: 12/22/17 19:03 Dose: 2.5 mg Sodium Chloride (Ns) 1,000 mls @ 0 mls/hr IV ONCE ONE PRN Reason: Wide Open Stop: 12/22/17 18:36 Last Admin: 12/22/17 18:40 Dose: 1,000 mls Famotidine/Sodium Chloride (Pepcid 20 Mg (Premix)) 50 mls @ 200 mls/hr IV EDNOW ONE Stop: 12/22/17 18:59 Last Admin: 12/22/17 19:01 Dose: 50 mls Sodium Chloride (Ns) 1,000 mls @ 0 mls/hr IV ONCE ONE PRN Reason: Wide Open Stop: 12/22/17 19:40 Last Admin: 12/22/17 19:46 Dose: 1,000 mls Ketorolac Tromethamine (Toradol) 15 mg IVP EDNOW ONE Stop: 12/22/17 19:51 Last Admin: 12/22/17 19:52 Dose: 15 mg Ondansetron HCl (Zofran) 4 mg IVP EDNOW ONE Stop: 12/22/17 18:36 Last Admin: 12/22/17 18:40 Dose: 4 mg Departure - Departure Disposition: Home, Routine, Self-Care Clinical Impression: Cyclic vomiting syndrome, Epigastric abdominal pain Condition: Good Instructions: Abdominal Pain (ED), Cyclic Vomiting Syndrome (ED) Additional Instructions: Follow up with your primary care in the next 3-7 days Referrals: MELISSA PANDA [Other] - As per Instructions
[2017-12-22 18:42] LABS: PLATELET COUNT 257 10^3/uL (150-400)
[2017-12-22] MEDS ORDERED: HALOPERIDOL LACT 5 MG/ML INJ IVP ONE (18:44)
[2017-12-22] MEDS ORDERED: FAMOTIDINE 20 MG/NACL 50 ML IV ONE (18:45)
[2017-12-22] MEDS ORDERED: KETOROLAC 15 MG/1 ML SDV IVP ONE (19:50)
[2017-12-22 19:59] VITALS: RESP 16; O2SAT 94
[2017-12-22 21:39] VITALS: BP 137/85; PULSE 91; TEMP 98.4
== END 2017-12-22 21:44 | disposition home or self-care (01) ==
LOC: CED 18:24
DX: G43.A0 Cyclical vomiting, in migraine, not intractable (principal); R10.13 Epigastric pain; F17.200 Nicotine dependence, unspecified, uncomplicated
CPT/HCPCS: 74022-PO; 76705-PO; 80053-PO; 82248-PO; 83605-PO; 83690-PO; 84100-PO; 85025-PO; 96374; J1630; J1885; J2405

== ENCOUNTER 2018-03-14 11:46 | Emergency (ER) | payer MEDICAID ==
[2018-03-14] MEDS ORDERED: HALOPERIDOL LACT 5 MG/ML INJ IVP ONE (12:10)
[2018-03-14] MEDS ORDERED: NS 1,000 ML IV ONE ×2 (12:10→13:00)
--- NOTE | 2018-03-14 12:15 | EDPHY ---
H & P Stated Complaint: abd pain since am Time Seen by Provider: 03/14/18 12:02 HPI/ROS: Chief Complaint: Abdominal pain HPI: 37-year-old male started having low abdominal pain this morning. Patient states that he had 2 normal bowel movements this morning but feels like he has to pass stool again. Does have a history of cyclic vomiting but states that this feels different. No nausea or vomiting. No diarrhea or constipation. No dark black tarry stools or blood in his stools. Pain is about a 10/10. No urinary urgency or frequency. There are no aggravating or alleviating factors. ROS: 10 point Review of Systems is negative except as noted in the HPI. PMH: Cyclic vomiting syndrome Social History: Positive smoking, occasional alcohol, denies any other drug use including marijuana Family History: non-contributory Physical Exam: Gen: Awake, Alert, uncomfortable appearing HEENT: Nose: no rhinorrhea Eyes: PERRLA, EOMI Mouth: Moist mucosa Neck: Supple, no JVD Chest: nontender, lungs clear to auscultation Heart: S1, S2 normal, no murmur Abd: Soft, mild left lower quadrant tenderness, no guarding Back: no CVA tenderness, no midline tenderness Ext: no edema, non-tender Skin: no rash Neuro: CN II-XII intact, Sensation grossly intact, Strength 5/5 in bilateral upper and lower extremities - Personal History Current Tetanus Diphtheria and Acellular Pertussis (TDAP): Yes Tetanus Vaccine Date: within 10 years - Medical/Surgical History Hx Asthma: No Hx Chronic Respiratory Disease: No Hx Diabetes: No Hx Cardiac Disease: No Hx Renal Disease: No Hx Cirrhosis: No Hx Alcoholism: No Hx HIV/AIDS: No Hx Splenectomy or Spleen Trauma: No Other PMH: stress induced gastritis, cyclic vomiting - Social History Smoking Status: Heavy smoker Constitutional: Initial Vital Signs Temperature (C) 36.6 C 03/14/18 11:53 Heart Rate 73 03/14/18 11:53 Respiratory Rate 20 03/14/18 11:53 Blood Pressure 175/108 H 03/14/18 11:53 O2 Sat (%) 98 03/14/18 11:53 O2 Delivery Mode Room Air Allergies/Adverse Reactions: No Known Allergies Allergy (Verified 03/14/18 11:55) Home Medications: Medication Instructions Recorded Zantac 03/14/18 Medical Decision Making ED Course/Re-evaluation: Patient is improved after Haldol, Toradol and Hycotuss mean. Pain is a 4/10. His abdomen is soft and benign. His laboratory evaluations are unremarkable other than evidence of dehydration. He has received 2 L of fluids IV here. He is tolerating p.o. Fluids. Plan will be for discharge. He has appointment with his primary care physician already on . He will return for any concerns. On it see any evidence of an acute surgical abdomen at this time. Repeat examination is soft and benign. - Data Points Laboratory Results: 03/14/18 12:28 POC Sodium 140 mEq/L mEq/L (135-145) POC Potassium 3.3 mEq/L mEq/L (3.3-5.0) POC Chloride 105.0 mEq/L mEq/L (97-110) POC Total CO2 16 mEq/L L mEq/L (22-31) POC BUN 5 mg/dL L mg/dL (7-23) POC Creatinine 1.3 mg/dL mg/dL (0.7-1.3) POC Glucose 111 mg/dL H mg/dL (70-100) POC Calcium 9.5 mg/dL mg/dL (8.5-10.4) Medications Given: Discontinued Medications Haloperidol Lactate (Haldol Injection) 2.5 mg IVP EDNOW ONE Stop: 03/14/18 12:11 Last Admin: 03/14/18 12:17 Dose: 2.5 mg Hyoscyamine Sulfate (Levsin, Hyomax-Sl) 0.125 mg PO EDNOW ONE Stop: 03/14/18 13:36 Last Admin: 03/14/18 13:50 Dose: 0.125 mg Sodium Chloride (Ns) 1,000 mls @ 0 mls/hr IV ONCE ONE; Wide Open PRN Reason: Protocol Stop: 03/14/18 12:11 Last Admin: 03/14/18 12:05 Dose: 1,000 mls Ketorolac Tromethamine (Toradol) 15 mg IVP EDNOW ONE Stop: 03/14/18 12:45 Last Admin: 03/14/18 12:56 Dose: 15 mg Point of Care Test Results: CBC CBC Collection Date 03/14/18 CBC Collection Time 12:00 WBC 9.7 RBC 5.84 HGB 20.3 HCT 59.0 PLT 274 Neut # 6.0 Neut 61.5 LYMPH # 3.0 LYMPH 30.8 Other WBC # 0.7 Other WBC 7.7 MCV 101.0 Chemistry 03/14/18 12:28 POC Sodium 140 mEq/L mEq/L (135-145) POC Potassium 3.3 mEq/L mEq/L (3.3-5.0) POC Chloride 105.0 mEq/L mEq/L (97-110) POC Total CO2 16 mEq/L L mEq/L (22-31) POC BUN 5 mg/dL L mg/dL (7-23) POC Creatinine 1.3 mg/dL mg/dL (0.7-1.3) POC Glucose 111 mg/dL H mg/dL (70-100) POC Calcium 9.5 mg/dL mg/dL (8.5-10.4) Urine Dip Collection Date 03/14/18 Collection Time 13:20 Specific [place]ora (1.002-1.030) 1.025 PH (5.0-7.5) 6.5 Leukocytes (Negative) Negative Nitrites (Negative) Negative Protein (Negative) 1+ Glucose (Negative) Negative Ketones (Negative) 4+ Urobilnogen (0.2-1.0 EU) 0.2 Bilirubin (Negative) Test Not Performed Blood (Negative) Trace Departure - Departure Disposition: Home, Routine, Self-Care Clinical Impression: Abdominal pain Condition: Good Instructions: Acute Abdominal Pain (ED) Additional Instructions: Follow up with primary care physician in 4 days as already scheduled. Return to the emergency department for increasing abdominal pain, uncontrolled nausea vomiting, dark black tarry stools or any other concerns. Referrals: MELISSA PANDA [Other] - As per Instructions
[2018-03-14] MEDS ORDERED: KETOROLAC 15 MG/1 ML SDV IVP ONE (12:44)
[2018-03-14] MEDS ORDERED: HYOSCYAMINE SULFATE 0.125 MG TAB PO ONE (13:35)
[2018-03-14 14:26] VITALS: BP 165/100
== END 2018-03-14 14:05 | disposition home or self-care (01) ==
LOC: CED 11:46
DX: R10.32 Left lower quadrant pain (principal); F17.200 Nicotine dependence, unspecified, uncomplicated; E86.9 Volume depletion, unspecified
CPT/HCPCS: 80048-PO; 96374; J1630; J1885

== ENCOUNTER 2018-05-10 | Emergency (ER) | payer MEDICAID | END 2018-05-10 21:23 | disposition home or self-care (01) ==

== ENCOUNTER 2018-07-04 11:21 | Emergency (ER) | payer MEDICAID ==
[2018-07-04] MEDS ORDERED: NS 1,000 ML IV ONE ×4 (11:28→13:33)
[2018-07-04] MEDS ORDERED: FAMOTIDINE 20 MG/2 ML SDV IVP ONE (11:56)
[2018-07-04] MEDS ORDERED: LORazepam 2 MG/ML INJ IVP ONE (11:56)
[2018-07-04] MEDS ORDERED: HALOPERIDOL LACT 5 MG/ML INJ IVP ONE (11:57)
--- NOTE | 2018-07-04 11:58 | EDPHY ---
H & P Stated Complaint: vomiting since MN missed his pepcid dose . chronic n/v hx Time Seen by Provider: 07/04/18 11:27 HPI/ROS: 38-year-old male with history of cyclic vomiting presents with vomiting since last night. States he was started on Pepcid AC approximately 1 month ago had forgot to take it yesterday states he has actually been doing quite well until last night. Review of systems As per HPI General no fever no chills no weakness HEENT no eye pain no eye discharge. No eye redness, no sore throat Respiratory no cough, no shortness of breath Cardiac no chest pain, no peripheral edema GI positive abdominal pain, no diarrhea, no constipation, positive nausea, positive vomiting no flank pain, no hematuria, no dysuria Musculoskeletal no myalgias, no joint pain Heme no easy bruising, no easy bleeding Endo no polyuria, no polydipsia Skin no rashes, no pruritus Neuro no syncope, no dizziness, no headaches Psych is no suicidal ideation, no homicidal ideation Source: Patient Exam Limitations: No limitations - Personal History Current Tetanus Diphtheria and Acellular Pertussis (TDAP): Yes Tetanus Vaccine Date: within 10 years - Medical/Surgical History Hx Asthma: No Hx Chronic Respiratory Disease: No Hx Diabetes: No Hx Cardiac Disease: No Hx Renal Disease: No Hx Cirrhosis: No Hx Alcoholism: No Hx HIV/AIDS: No Hx Splenectomy or Spleen Trauma: No Other PMH: stress induced gastritis, cyclic vomiting X2 yrs - Family History Significant Family History: No pertinent family hx - Social History Smoking Status: Heavy smoker Alcohol Use: Occasionally Drug Use: Marijuana - Physical Exam Exam: 38-year-old male HEENT atraumatic normocephalic, extraocular muscles intact, anicteric Oropharynx negative for erythema negative exudate, tolerating her own secretions Neck supple no meningismus Lungs clear to auscultation bilaterally Heart regular rate and rhythm without murmur rub or gallop Abdomen nondistended normoactive bowel sounds soft mild epigastric tenderness, no guarding no rebound Back no CVA tenderness, no step-offs, no spinal tenderness Extremities no cyanosis clubbing or edema Neuro alert and oriented, no focal deficits Constitutional: Initial Vital Signs Temperature (C) 36.5 C 07/04/18 11:26 Heart Rate 95 07/04/18 11:26 Respiratory Rate 22 H 07/04/18 11:26 Blood Pressure 153/94 H 07/04/18 11:26 O2 Sat (%) 98 07/04/18 11:26 O2 Delivery Mode Room Air Allergies/Adverse Reactions: No Known Allergies Allergy (Verified 07/04/18 11:30) Home Medications: Medication Instructions Recorded Pepcid AC 07/04/18 Medical Decision Making ED Course/Re-evaluation: Patient seen and evaluated for epigastric abdominal pain and vomiting that began last night and continued throughout the night. IV established Patient given 3 L normal saline Labs done CBC with elevated WBC hemoglobin and hematocrit consistent with severe dehydration Lactate 4.6 Patient also given Haldol 2.5 mg IV push for intractable vomiting, Ativan 1 mg IV push for severe anxiety and famotidine 20 mg IV piggyback. After these medications and fluid hydration patient is feeling markedly improved and requesting discharge. Impression Acute gastritis, cyclic vomiting, severe dehydration Plan Discharge home Follow-up PCP Differential Diagnosis: Differential diagnosis considered but not limited to: Cyclic vomiting, gastritis, peptic ulcer disease, pancreatitis, cholecystitis, gastroenteritis - Data Points Laboratory Results: 07/04/18 07/04/18 07/04/18 14:10 12:13 12:04 POC Sodium POC Potassium POC Chloride POC Total CO2 POC BUN POC Creatinine POC Glucose POC Lactic Acid Beto 1.7 mmol/L D mmol/L 4.7 mmol/L H mmol/L 6.0 mmol/L H mmol/L (0.7-2.1) (0.7-2.1) (0.7-2.1) POC Calcium POC Total Bilirubin POC AST POC ALT POC Alk Phosphatase POC Total Protein POC Albumin 07/04/18 11:58 POC Sodium 144 mEq/L mEq/L (135-145) POC Potassium 4.2 mEq/L mEq/L (3.3-5.0) POC Chloride 102.0 mEq/L mEq/L (97-110) POC Total CO2 19 mEq/L L mEq/L (22-31) POC BUN 8 mg/dL mg/dL (7-23) POC Creatinine 1.2 mg/dL mg/dL (0.7-1.3) POC Glucose 161 mg/dL H mg/dL (70-100) POC Lactic Acid Beto POC Calcium 10.9 mg/dL H mg/dL (8.5-10.4) POC Total Bilirubin 1.9 mg/dL H mg/dL (0.1-1.4) POC AST 40 IU/L IU/L (17-59) POC ALT 39 IU/L IU/L (21-72) POC Alk Phosphatase 69 IU/L IU/L (38-126) POC Total Protein 8.8 g/dL H g/dL (6.3-8.2) POC Albumin 5.7 g/dL H g/dL (3.5-5.0) Medications Given: Discontinued Medications Famotidine (Pepcid) 20 mg IVP EDNOW ONE Stop: 07/04/18 11:57 Last Admin: 07/04/18 12:10 Dose: 20 mg Haloperidol Lactate (Haldol Injection) 2.5 mg IVP EDNOW ONE Stop: 07/04/18 11:58 Last Admin: 07/04/18 12:10 Dose: 2.5 mg Sodium Chloride (Ns) 1,000 mls @ 0 mls/hr IV ONCE ONE PRN Reason: Wide Open Stop: 07/04/18 11:29 Last Admin: 07/04/18 11:47 Dose: 1,000 mls Sodium Chloride (Ns) 1,000 mls @ 0 mls/hr IV ONCE ONE PRN Reason: Wide Open Stop: 07/04/18 11:57 Last Admin: 07/04/18 12:00 Dose: 1,000 mls Sodium Chloride (Ns) 1,000 mls @ 0 mls/hr IV ONCE ONE PRN Reason: Wide Open Stop: 07/04/18 13:34 Last Admin: 07/04/18 12:30 Dose: 1,000 mls Lorazepam (Ativan Injection) 1 mg IVP EDNOW ONE Stop: 07/04/18 11:57 Last Admin: 07/04/18 12:08 Dose: 1 mg Point of Care Test Results: CBC CBC Collection Date 07/04/18 CBC Collection Time 11:55 WBC 15.7 RBC 5.86 HGB 20.7 HCT 56.7 PLT 253 Neut # 13.7 Neut 87.4 LYMPH # 1.1 LYMPH 6.8 Other WBC # 0.9 Other WBC 5.8 MCV 96.8 Chemistry 07/04/18 11:58 POC Sodium 144 mEq/L mEq/L (135-145) POC Potassium 4.2 mEq/L mEq/L (3.3-5.0) POC Chloride 102.0 mEq/L mEq/L (97-110) POC Total CO2 19 mEq/L L mEq/L (22-31) POC BUN 8 mg/dL mg/dL (7-23) POC Creatinine 1.2 mg/dL mg/dL (0.7-1.3) POC Glucose 161 mg/dL H mg/dL (70-100) POC Calcium 10.9 mg/dL H mg/dL (8.5-10.4) POC Total Bilirubin 1.9 mg/dL H mg/dL (0.1-1.4) POC AST 40 IU/L IU/L (17-59) POC ALT 39 IU/L IU/L (21-72) POC Alk Phosphatase 69 IU/L IU/L (38-126) POC Total Protein 8.8 g/dL H g/dL (6.3-8.2) POC Albumin 5.7 g/dL H g/dL (3.5-5.0) Blood Gas/Lactic Acid-Venous 07/04/18 07/04/18 07/04/18 14:10 12:13 12:04 POC Lactic Acid Beto 1.7 mmol/L D mmol/L 4.7 mmol/L H mmol/L 6.0 mmol/L H mmol/L (0.7-2.1) (0.7-2.1) (0.7-2.1) Departure - Departure Disposition: Home, Routine, Self-Care Clinical Impression: Acute gastritis, Severe dehydration Condition: Good Instructions: Gastritis (ED), Dehydration (ED) Referrals: NONE *PRIMARY CARE P,. [Primary Care Provider] - As per Instructions
[2018-07-04 14:35] VITALS: BP 131/77
== END 2018-07-04 14:25 | disposition home or self-care (01) ==
LOC: CED 11:21
DX: K29.00 Acute gastritis without bleeding (principal); E86.0 Dehydration; F17.210 Nicotine dependence, cigarettes, uncomplicated
CPT/HCPCS: 80053-PO; 83605-PO; 96374; J1630; J2060

== ENCOUNTER 2018-12-12 07:29 | Emergency (ER) | payer MEDICAID ==
[2018-12-12] MEDS ORDERED: ACETAMINOPHEN 325 MG TAB PO ONE (07:47)
--- NOTE | 2018-12-12 07:50 | EDPHY ---
H & P Stated Complaint: L upper back/rib pain after coughing today Time Seen by Provider: 12/12/18 07:47 HPI/ROS: CHIEF COMPLAINT: back pain HISTORY OF PRESENT ILLNESS: This is a 38-year-old male who presents with mid back pain that began immediately after coughing this morning. Pain came on abruptly, he heard a pop at the onset of the pain, and the pain was severe enough to dropped him to his knees. He rates the pain as 810 at its onset, now off 5. He has not taken any pain medication. Pain is located below his scapula on the left, and although he can pinpoint a painful spot just below his left scapula , he notes that he has pain extending from that site to the base of his posterior ribcage on the left. The pain is pleuritic. He feels as if he is not getting enough air. He has not had a coughing or respiratory illness. He quit smoking in July of 2018. REVIEW OF SYSTEMS: A ten system review of systems was performed and is negative with the exception of the items mentioned in the HPI. Past medical history: Gastritis/cyclic vomiting Past surgical history: Negative Social history: He quit smoking in July. He states that he drinks alcohol socially. He works in sales. He lives with his . General Appearance: Alert. Vital signs reviewed. Blood pressure 157/102. Oxygen saturation 97% on room air. Disheveled. Eyes: Pupils equal and round, no conjunctival injection, no discharge. Anicteric. ENT, Mouth: Mucous membranes are moist, no oropharyngeal erythema or edema. Neck: No lymphadenopathy, supple. Respiratory: Lungs are clear to auscultation; no wheezes, rales, or rhonchi. No stridor. No tachypnea. Thorax: Tender to palpation over the posterior ribcage below the clavicle on the left. No crepitus. Cardiovascular: Regular rate and rhythm; no murmur, rub, or gallop. Gastrointestinal: Abdomen is soft and nontender, no masses or organomegaly, bowel sounds normal. Skin: Warm and dry, no rashes on exposed skin, normal color. Back: Nontender to palpation over the thoracolumbar spine. No CVAT. Extremities: No lower extremity edema, no calf tenderness or swelling. Neurological: Alert and oriented. Moving all four extremities easily and equally. Psychiatric: Normal affect. - Personal History Current Tetanus Diphtheria and Acellular Pertussis (TDAP): Yes Tetanus Vaccine Date: within 10 years - Medical/Surgical History Hx Asthma: No Hx Chronic Respiratory Disease: No Hx Diabetes: No Hx Cardiac Disease: No Hx Renal Disease: No Hx Cirrhosis: No Hx Alcoholism: No Hx HIV/AIDS: No Hx Splenectomy or Spleen Trauma: No Other PMH: stress induced gastritis, cyclic vomiting X2 yrs - Social History Smoking Status: Former smoker Constitutional: Initial Vital Signs Temperature (C) 36.7 C 12/12/18 07:35 Heart Rate 86 12/12/18 07:35 Respiratory Rate 16 12/12/18 07:35 Blood Pressure 157/102 H 12/12/18 07:35 O2 Sat (%) 97 12/12/18 07:35 O2 Delivery Mode Room Air Allergies/Adverse Reactions: No Known Allergies Allergy (Verified 12/12/18 07:35) Home Medications: Medication Instructions Recorded Pepcid AC 07/04/18 Cyclobenzaprine [Flexeril 10 MG 10 mg PO TID PRN #10 tab 12/12/18 (*)] Hydrocodone/APAP 5/325 [Liberty 1 - 2 tab PO Q4 PRN #10 tab 12/12/18 5/325 (RX)] Medical Decision Making - Diagnostics Imaging Results: Imaging Impressions Chest X-Ray 12/12/18 07:47 Impression: Normal chest x-ray. ED Course/Re-evaluation: 38-year-old male with acute onset of chest pain, posterior, after coughing. He was given Tylenol initially in the emergency department. I reviewed the two view chest x-ray. I see no evidence of infiltrate, rib fracture, or pneumothorax. I have also reviewed the radiology report. Patient will be given a dose of IV Toradol. I remain concerned about his pleuritic chest pain and subjective dyspnea. Well' s criteria would put him at moderate risk for PE based on signs and symptoms of PE. He is PERC negative. Will obtain D-dimer as screening test. D-dimer is within normal limits. Patient received 650 mg Tylenol orally, 30 mg IV Toradol, 5 mg p.o. Valium in the emergency department. His pain was improved, but not gone. I think that it is likely musculoskeletal pain. He will be discharged with prescriptions for small quantity of Vicodin and small quantity of muscle relaxant. No prescriptions found on [facility]. We discussed the use of ibuprofen and Tylenol. He will follow up as needed with his primary care provider. Danger signs were reviewed. Differential Diagnosis: Shortness of breath including but not limited to pulmonary infectious process, costochondritis COPD, asthma, pulmonary embolus and congestive heart failure. - Data Points Medications Given: Discontinued Medications Acetaminophen (Tylenol) 650 mg PO EDNOW ONE Stop: 12/12/18 07:48 Last Admin: 12/12/18 07:51 Dose: 650 mg Hydrocodone Bitart/Acetaminophen (Liberty 5/325) 1 tab PO EDNOW ONE Stop: 12/12/18 10:10 Last Admin: 12/12/18 10:14 Dose: 1 tab Diazepam (Valium) 5 mg PO EDNOW ONE Stop: 12/12/18 09:36 Last Admin: 12/12/18 09:43 Dose: 5 mg Ketorolac Tromethamine (Toradol) 30 mg IVP EDNOW ONE Stop: 12/12/18 08:20 Last Admin: 12/12/18 09:13 Dose: 30 mg Point of Care Test Results: D-Dimer D-Dimer Collection Date 12/12/18 D-Dimer Collection Time 09:08 D-Dimer (ng/ml) 113 Departure - Departure Disposition: Home, Routine, Self-Care Clinical Impression: Costochondritis, acute Condition: Good Instructions: Costochondritis (ED) Additional Instructions: Adult Pain & Fever Control: We recommend Acetaminophen (Tylenol) and Ibuprofen (Motrin,Advil) for pain and fever control. When fever is high or pain severe, both drugs can be used at the same time, but at different intervals. Please note the time differences. Your dose is: Acetaminophen 650mg every 4 to 6 hours Ibuprofen 600mg every 6-8 hours with food OR Note: do not take Acetaminophen with Hydrocodone (Vicodin, Lortab) or Oycodone (Percocet). These medications also contain Acetaminophen. No more than 3000mg of Acetaminophen should be taken in 24 hours (for an adult). You received IV Toradol in the emergency department and should not take any ibuprofen until 5:00 p.m. Today. You received a total of 1 g of Tylenol ( acetaminophen) in the emergency department. You can take Tylenol every 4 hr. You can take i a dose at 12 noon today. Watch your overall Tylenol intake. Each Vicodin (Liberty) contains 325 mg of Tylenol. You should not take more than 3000 mg of Tylenol in a 24 hr time period. I think that you have pulled the muscle/cartilage the connects your ribs, causing you to have pain. Anti-inflammatory medication, such as ibuprofen, is the best treatment of this problem. Referrals: [facility],. [Clinic] - As per Instructions Stand Alone Forms: Narcotic Guidelines Prescriptions: Cyclobenzaprine [Flexeril 10 MG (*)] 10 mg PO TID PRN #10 tab PRN Reason: Spasms Hydrocodone/APAP 5/325 [Liberty 5/325 (RX)] 1 - 2 tab PO Q4 PRN #10 tab PRN Reason: pain
[2018-12-12] MEDS ORDERED: KETOROLAC 30 MG/1 ML SDV IVP ONE (08:19)
[2018-12-12] MEDS ORDERED: KETOROLAC 30 MG/1 ML SDV ONE (08:20)
[2018-12-12] MEDS ORDERED: DIAZEPAM 5 MG TAB PO ONE (09:35)
[2018-12-12 10:08] VITALS: BP 144/105
[2018-12-12] MEDS ORDERED: HYDROCODONE/APAP 5/325 TAB PO ONE (10:09)
== END 2018-12-12 10:20 | disposition home or self-care (01) ==
LOC: CED 07:29
DX: M94.0 Chondrocostal junction syndrome [Tietze] (principal); Z87.19 Personal history of other diseases of the digestive system
CPT/HCPCS: 71046-PO; 85379-QW-ER; 96374-ER; 99284-ER; J1885